=== PATIENT | male | born 1950 | race Caucasian/White ===

== ENCOUNTER 2017-01-23 10:31 | Day surgery (SDC) | payer OTHER, MEDICARE ==
[~2017-01-23] VITALS: Ht 172.7 cm; Wt 88.2 kg
[~2017-01-23 10:31] MED LIST: 0.9% Sodium Chloride 1,000 ML IV SCH; ALPH600C3 PO; CALC500T9 PO; CARV25TA PO; CHOL100045 PO; CIPR-231 PO; DOXY25TA46 PO; DULO30CA50 PO; FOLI1TAB18 PO; GABA-500 PO; INSLIS SUBQ; INSU100I13 SUBQ; LEVO75TA4 PO; LISI2.5T PO; LOVA20TA PO; METR500T PO; OMEP10CA4 PO; SILD100T PO; Sodium Chloride LOK Flush 10 mL Syringe IV PRN; VITA1TAB47 PO; fentaNYL-PF 50 mCg/mL 2 mL Inj IVPUSH PRN
[2017-01-23 10:52] VITALS: BP 170/108; PULSE 78; RESP 14; O2SAT 98
[2017-01-23 11:08] VITALS: BP 162/106
[2017-01-23 12:03] VITALS: BP 160/98; PULSE 65; RESP 14; O2SAT 93
[2017-01-23 12:13] VITALS: BP 163/92; PULSE 65; RESP 14; O2SAT 97
[2017-01-23 12:23] VITALS: BP 145/97; PULSE 68; RESP 14; O2SAT 94
--- NOTE | 2017-01-23 13:17 | ENDO ---
[address] [address] ENDOSCOPY PROCEDURE PATIENT: FARIDEH MILLAN : 1950 MR#: [id number] ADMIT: 01/23/2017 JOB ID: [id number] DATE OF SERVICE: 01/23/2017 PROCEDURE PERFORMED: Colonoscopy. INDICATIONS: The patient with a recent history of diverticulitis. ASA CLASSIFICATION: The patient's ASA classification is II. MALLAMPATI SCORE: Mallampati score was 2. MEDICATIONS: 1. Versed 5 mg. 2. Fentanyl 125 mcg. INSTRUMENT USED: PCF-H190DL. PREPARATION QUALITY: Fair. PROCEDURE DETAILS: After informed consent was obtained, the patient was brought into the GI suite, where he was placed on oxygen via nasal cannula and monitored with continuous pulse oximeter, telemetry, and blood pressure monitoring. A time-out was performed. Then, he was placed in the left lateral decubitus position and medications were administered for sedation. Digital rectal exam with palpation of the prostate was performed which was unremarkable. The colonoscope was then inserted into the rectum and advanced under direct visualization to the cecum, which was identified by the presence of the ileocecal valve and appendiceal orifice. Once the cecum was reached, the colonoscope was withdrawn back into the rectum, as the mucosa and lumen were examined. In the rectum, retroflexion was performed. Following retroflexion, remaining air in the rectum was suctioned, and procedure was completed. FINDINGS: Scattered diverticula were seen throughout the left side of the colon. IMPRESSION: Left-sided diverticulosis. RECOMMENDATIONS: 1. Fiber-rich diet. 2. Follow up in GI clinic in 4-6 weeks. COMPLICATIONS: None. ESTIMATED BLOOD LOSS: Zero.
== END 2017-01-23 23:59 | disposition home or self-care (01) ==
LOC: END 10:31
PROVIDERS: ATTEND Internal Medicine Gastroenterology
DX: K57.92 Diverticulitis of intestine, part unspecified, without perforation or abscess without bleeding (principal); I10 Essential (primary) hypertension; E03.9 Hypothyroidism, unspecified; E78.5 Hyperlipidemia, unspecified; E11.9 Type 2 diabetes mellitus without complications; K86.2 Cyst of pancreas; F10.10 Alcohol abuse, uncomplicated; Z79.4 Long term (current) use of insulin
CPT/HCPCS: 45378; G0500; J2250; J3010; J7030

== ENCOUNTER → 2017-06-05 | Day surgery (SDC) | payer OTHER ==
[~2017-06-05] VITALS: Ht 175.3 cm; Wt 83.0 kg
[~2017-06-05] MED LIST changes: -0.9% Sodium Chloride 1,000 ML IV SCH; -CIPR-231 PO; +Lactated Ringer's 1,000 ML IV ONE; +Lactated Ringer's 1,000 ML IV SCH; -METR500T PO; +MetoCLOpramide 5 mg/mL 2 mL Inj IVPUSH PRN; +Ondansetron 2 mg/mL 2 mL Inj IVPUSH PRN; +Propofol 10,000 mCg/mL 20 mL Inj ONE; -Sodium Chloride LOK Flush 10 mL Syringe IV PRN; -fentaNYL-PF 50 mCg/mL 2 mL Inj IVPUSH PRN; +fentaNYL-PF 50 mCg/mL 2 mL Inj ONE
[2017-06-05 09:52] VITALS: BP 155/90; PULSE 63; RESP 16; O2SAT 95
--- NOTE | 2017-06-05 10:41 | PCM.HPANE ---
Patient Data Surgeon Admitting Provider: Attending Provider:Leslie Glover MD Primary Care Physician:Jean Carlos Ramos MD Other Provider:Otf Lee Anesthesia Reason for Visit Dysphagia Ht/WT & BMI Body Mass Index Allergies Coded Allergies: No Known Drug Allergies (Verified Allergy, Unknown, 06/05/17) Past Anesthesia History Anesthesia History: Positive for:: Abnormal Airway (TRACHEOSTOMY/SCARRING), Denies:: Anesthesia Reactions, Difficult Intubation, Fam Anesthesia Reaction , Fam Malignant Hypertherm, Malignant Hyperthermia Diabetes History Hx Diabetes?: Yes Type of Diabetes: Type II Glycemic Control: Insulin Dependent MRSA MRSA: No Medications Blood Thinner: Aspirin Active Scripts Insulin Human Lispro (HumaLOG U100 Insulin Vial)100 Unit/Ml Unit SUBQ TID- INSULIN #20 ML Ref 3 Check blood sugars before meals and at bedtime. Use correction factor only before meals. Blood Sugar Lispro Correction: <151, 0 units; 151-175, 1 unit; 176-200, 2 units; 201-225, 3 units; 226-250, 4 units; 251-275, 5 units; 276-300, 6 units; 301-325, 7 units; 326-350, 8 units; 351-375, 9 units; 376-400, 10 units; >400, 12 units. Prov:Yasir Willis MD 02/24/14 Carvedilol (Coreg)25 Mg Pcqxde16 Mg PO BID #60 TABLET Ref 3 Prov:Yasir Willis MD 02/24/14 Reported Medications Sildenafil Citrate (Viagra)100 Mg Osupur190 Mg PO UD Ref 0 01/22/17 Duloxetine 30 Mg Capsule.dr30 Mg PO DAILY Ref 0 01/22/17 Alpha Lipoic Acid 600 Mg Dxxxrce512 Mg PO 01/22/17 Doxylamine Succinate (Unisom)25 Mg Plbkyt72 Mg PO HS PRN For Insomnia 09/12/16 B Complex with Vitamin C (Vitamin B-Complex & C)1 Each Tablet.er1 Each PO DAILY 09/12/16 Cholecalciferol (Vitamin D3) (Vitamin D)1,000 Unit Capsule1,000 Unit PO DAILY # 1 BOTTLE Ref 0 09/12/16 Calcium Carbonate (Tums)500 Mg Tab.ghij028 Mg PO PRN PRN For Dyspepsia or Heartburn 30 Days 09/12/16 Insulin Glargine (Lantus U100 Solostar Insulin Pen)100 Unit/1 Ml Insuln.pen27 Unit SUBQ HS #1 PENINJ Ref 0 09/12/16 Lisinopril 2.5 Mg Tablet2.5 Mg PO DAILY #30 09/12/16 Levothyroxine 75 Mcg Epsbmv53 Mcg PO DAILY #30 09/12/16 Folic Acid 1 Mg Tablet1 Mg PO DAILY #30 09/12/16 Gabapentin 100 Mg Gnyqohk303 Mg PO TID 0 Days Ref 0 05/24/14 Discontinued Reported Medications Omeprazole 10 Mg Capsule.dr10 Mg PO DAILY Ref 0 01/22/17 Lovastatin 20 Mg Oxzanf46 Mg PO HS #30 TABLET Ref 0 01/22/17 History History of ENT Problems?: Yes HEENT History: Positive for:: Abnormal Airway (TRACHEOSTOMY/SCARRING) Cataracts (will be operated on) Dysphagia (INTERMITTENT SOLIDS/FLUIDS) Hearing Problem (MOD [place]) Denies:: Difficult Intubation Sinus Problem Denture Type: None Teeth Condition: Within Normal Limits Hx of Heart Problems?: Yes Cardiovascular History: Positive for:: Hypertension Denies:: AICD Atrial Fibrillation Cardiac Surgery Chest Pain Congestive Heart Failure Edema Heart Murmur Irregular Heartbeat Pacemaker Thrombophlebitis Valvular Heart Disease Hx of Respiratory Problem?: No Respiratory History: Positive for:: Dyspnea (with activity) Denies:: Asthma COPD Chest Surgery Cough Hemoptysis Pneumonia Tuberculosis Hx Neurologic Problems?: Yes Neurological History: Positive for:: Seizures (H/O ETOH W/D SEIZURE X 1) Denies:: Alzheimer's Disease CVA Dementia Dizziness Headaches Hx of GI Problems?: Yes Hx of Problems?: Yes Genitourinary History: Denies:: HX of Hemodialysis Kidney Stones Urinary Tract Infection HX of Peritoneal Dialysis: No Male Hx: Positive for:: Prostate Problems (Prostate CA with radiotherapy) Denies:: Scrotal Mass Testicular Surgery Hx Musculoskeletal Problems?: No Musculoskeletal History: Denies:: Back Injury Joint Replacement Musculoskeletal Trauma Hx of Psycho/Social Problems?: Yes Psycho Social History: Positive for:: Hx Depression Denies:: Anxiety Bipolar Disorder Suicide Attempt Hx Surgeries?: Yes (ABD HERNIA) Hx Any Other Health Problems?: Yes Other History: Positive for:: Cancer (Prostate) Endocrine Disease Hospitalization (pancreatitis) Thyroid Disease (Hypothyroidism) History Blood Transfusions: Denies:: Blood Transfuse Reaction Blood Transfusions Hx Diabetes: Yes Hx Alcohol Use: YesHx Substance Use: Yes (Cocaine 10 yrs ago) Smoking Status: Current Some Day Smoker Have You Smoked inLast 12 mo: Yes Stop/Bang Risk Assessment Category Category 1A: Patient has history of documented sleep apnea, and HAS NOT received any narcotic, sedative or anesthesia administration during this stay. Category 1B: Patient has history of documented sleep apnea, and HAS received any narcotic , sedative or anesthesia administration during this stay Category 2: Patient has SUSPECTED Obstructive Sleep Apnea, and HAS received any narcotic , sedative or anesthesia administration during this stay. Category 3: Patient has SUSPECTED Obstructive Sleep Apnea and HAS NOT received narcotic, sedative or anesthesia administration during this stay. Category 4: Outpatient in Procedural Areas with known sleep apnea or who screen positive for High Risk via the STOP/BANG questionnaire. Exam Exam General Appearance: Alert HEENT/AIRWAY: MP 2, Neck Movement (FROM,3 FB) Lungs: Clear to Auscultation Heart: Regular Rate/Rhythm Plan Impression Patient chart reviewed, patient interviewed and anesthestic plan with risks, benefits, and alternatives discussed, and informed consent obtained. NPO per Anesth. Guidelines: Yes ASA Physical Status: ASA3 Severe Disease Anesthetic Plan: MAC Bene/Risks/Altern/Consents: Yes HP Complete Prior to Induction: Yes Fito Pratt MD Jun 05, 2017 09:37
[2017-06-05 10:58] VITALS: BP 115/71; PULSE 58; RESP 16; O2SAT 95
--- NOTE | 2017-06-05 11:05 | PCM.ANEP1 ---
Post Anesthesia PACU Phase 1 Assessment Vital Signs Vital Signs Date Time Temp Pulse Resp B/P Pulse Ox O2 Delivery O2 Flow Rate FiO2 06/05/17 10:58 35.8 58 16 115/71 95 Room Air 06/05/17 09:52 36.4 63 16 155/90 95 Room Air Anesthetic Administered: MAC Level of Alertness: Sleepy, easy to arouse RASMUSSEN's with Equal Strength: Yes Pain: No Nausea or Vomiting: No CV Function & Hydration Stable: Yes Airway Device: Oxygen Delivery: Room Air Lungs: Clear to Auscultation Dermatome Level: Full Sensation PACU Phase 2 Assessment Complications: No Follow up Care: N/A Patient Instructions Provided: N/A Fito Pratt MD Jun 05, 2017 11:05
[2017-06-05 11:08] VITALS: BP 106/67; PULSE 57; RESP 16; O2SAT 94
[2017-06-05 11:17] VITALS: BP 114/71; PULSE 56; RESP 16; O2SAT 94
[2017-06-05 11:27] VITALS: BP 124/77; PULSE 55; RESP 16; O2SAT 94
--- NOTE | 2017-06-05 11:34 | ENDO ---
[address] [address] ENDOSCOPY PROCEDURE PATIENT: FARIDEH MILLAN : 1950 MR#: [id number] ADMIT: 06/05/2017 JOB ID: [id number] CORRECTED REPORT DATE 06/05/2017 PROCEDURE: Esophagogastroduodenoscopy INDICATION: Dysphagia. The patient's ASA classification, Mallampati score, and medications as per Dr. Bridger Pratt's anesthesia report. INSTRUMENT USED: [id number] PROCEDURE DETAILS: After informed consent was obtained, the patient was brought into the GI suite, where he was placed on oxygen via nasal cannula and monitored with continuous pulse oximeter, telemetry, and blood pressure monitoring. A time-out was performed. Then, he was placed in a left lateral decubitus position and medications were administered for sedation. A bite block was placed. The standard EGD scope was inserted through the bite block and advanced under direct visualization to the second portion of the duodenal bulb. I was unable to advance the scope beyond this portion as there was food in the duodenal bulb. The EGD scope was then withdrawn back into the body of the stomach. Retroflexion was performed. Following retroflexion, remaining air in the rectum was suctioned, and procedure was completed. FINDINGS: 1. At the GE junction, which was approximately 35 cm, there was a 4-5 mm polyp which appeared hyperplastic. Multiple biopsies were obtained. The mucosa from 35 cm extending up to 32 cm was ulcerated and quite friable. 2. The pylorus appeared normal as well as the antrum and body the stomach. Retroflexed views in the gastric body revealed a hiatal hernia. The diaphragmatic hiatus was at approximately 38 cm. The GE junction, as mentioned above, was at 35 cm. IMPRESSION: 1. LA class C ulcerative esophagitis. 2. Polyp at the gastroesophageal junction. 3. Hiatal hernia. RECOMMENDATIONS: 1. Alcohol cessation. 2. Omeprazole 40 mg daily. 3. Follow up in GI clinic in two to four weeks. COMPLICATIONS: None. ESTIMATED BLOOD LOSS: Less than 5 mL. Corrected by GS 06/11/17 at 9:42am DOS. MTDD
--- NOTE | 2017-06-09 17:22 | PATH ---
SURGICAL PATHOLOGY Attending Physician:Maurilio Nieves CASE STATUS: Signed Out PATIENT NAME: FARIDEH MILLAN PID: [id number] : 1950 DATE COLLECTED:06/05/2017 22:08 SPECIMEN: Esophagus, Biopsy CLINICAL HISTORY: 1). GE JUNCTION POLYP BIOPSY FINAL DIAGNOSIS: 1.GE JUNCTION POLYP, BIOPSY: SQUAMOCOLUMNAR JUNCTIONAL MUCOSA WITH SURFACE HYPERPLASTIC CHANGES IN THE COLUMNAR COMPONENT. Negative for intestinal metaplasia. Negative for dysplasia or malignancy. ICD10 R13.10 GROSS DESCRIPTION: Received in formalin, labeled with the patient' s name and "G and J polyp", are two fragments of rogers, soft tissue ranging from 0.2 x 0.2 x 0.1 cm to 0.3 x 0.2 x 0.1 cm. The fragments are totally submitted in cassette 1A. ([id number]) MICRO DESCRIPTION: See diagnosis. ICD-9 CODES: CPT CODES: 1: 00252 Electronically Signed Out Edward Harrison MD, Ph.D. [facility] Pathology [facility] [address], [place] [address] Technical component performed at [facility], [address] [place] [address] Ave[address], [place], [address]
== END | disposition home or self-care (01) ==
LOC: END 00:57
PROVIDERS: ATTEND Internal Medicine Gastroenterology
DX: K22.10 Ulcer of esophagus without bleeding (principal); K31.7 Polyp of stomach and duodenum; K44.9 Diaphragmatic hernia without obstruction or gangrene; K57.30 Diverticulosis of large intestine without perforation or abscess without bleeding; K86.2 Cyst of pancreas; I10 Essential (primary) hypertension; E78.5 Hyperlipidemia, unspecified; E03.9 Hypothyroidism, unspecified; F17.210 Nicotine dependence, cigarettes, uncomplicated; F32.9 Major depressive disorder, single episode, unspecified; E11.9 Type 2 diabetes mellitus without complications; F10.10 Alcohol abuse, uncomplicated; Z79.4 Long term (current) use of insulin; Z85.46 Personal history of malignant neoplasm of prostate
CPT/HCPCS: 43239; J2250; J3010; J7120